=== PATIENT | female | born 1970 | race Caucasian/White ===

== ENCOUNTER 2018-10-28 12:49 | Emergency (ER) | payer OTHER ==
[~2018-10-28] VITALS: Ht 165.1 cm; Wt 59.0 kg
[2018-10-28] MEDS ORDERED: SODIUM CHLORIDE 0.9% 500 ML IV ONE ×2 (13:03→13:45)
[2018-10-28 14:25] LABS: Basophils # (auto) 0.1 uL; Basophils % (auto) 1.9 % (0.0-2.0); Eosinophils # (auto) 0 uL; Eosinophils % (auto) 1.1 % (0.0-7.0); Hematocrit 29.8 % (36.0-46.0); Lymphocytes % (auto) 31.5 % (10.0-50.0); Mean Corpuscular Hemoglobin 36.1 pg (28.0-32.0); Mean Corpuscular Hgb Conc. 33.5 g/dL (32.0-36.0); Mean Corpuscular Volume 107.8 fL (80.0-100.0); Monocytes # (auto) 0.5 uL; Monocytes % (auto) 14.2 % (0.0-12.0); Neutrophils # (auto) 1.7 uL; Neutrophils % (auto) 51.3 % (37.0-80.0); Platelet Count (auto) 216 10^3/uL (140-450); Red Blood Cells 2.77 10^6/uL (4.0-5.20); Red Cell Distribution Width 14.2 % (11.8-14.3); White Blood Cell 3.3 10^3/uL (4.4-10.8)
[2018-10-28 14:35] LABS: INR 1.01 (0.9-1.15); Prothrombin Time 10.8 sec (9.27-12.13)
[2018-10-28 14:41] LABS: Albumin 3.1 g/dL (3.4-5.0); Calcium 7.3 mg/dL (8.5-10.1); Potassium 4.2 mmol/L (3.5-5.1)
[2018-10-28 14:50] LABS: BUN/Creatinine Ratio 14.7; Bilirubin, Total 0.5 mg/dL (0.2-1.0); Total Protein 6.6 g/dL (6.4-8.2)
[2018-10-28] MEDS ORDERED: CALCIUM ACETATE 667 MG CAP PO ONE (15:15)
[2018-10-28] MEDS ORDERED: DEXTROSE (50%) 50ML SYRG IV ONE (15:15)
[2018-10-28] MEDS ORDERED: THIAMINE 100mg/ml INJ (200mg/2ml VIAL) IV ONE (15:15)
[2018-10-28 15:33] LABS: Lactic Acid w/Reflex 5.1 mmol/L (0.4-2.0)
[2018-10-28] MEDS ORDERED: cefTRIAXone 1GM/50ML D5W 50 ML IV ONE (15:45)
[2018-10-28 18:12] VITALS: BP 112/57
== END 2018-10-28 18:31 | disposition short-term general hospital (02) ==
LOC: ER 12:57
DX: R55 Syncope and collapse (principal); D72.819 Decreased white blood cell count, unspecified; I95.9 Hypotension, unspecified; F10.920 Alcohol use, unspecified with intoxication, uncomplicated; Y90.0 Blood alcohol level of less than 20 mg/100 ml; I10 Essential (primary) hypertension
CPT/HCPCS: 36415; 70450; 71045; 80053; 80320; 82962; 83605; 83880; 84484; 84702; 85025; 85610; 85730; 87040; 94761; 96361; 96365; 96366; 96375; 99285; J0696; J3411; J7030; J7040; J7042